=== PATIENT | female | born 1935 | race African-American/Black ===

== ENCOUNTER 2017-01-30 11:55 | Emergency (ER) | payer MEDICARE, OTHER ==
[~2017-01-30] VITALS: Ht 157.5 cm; Wt 58.0 kg
[~2017-01-30 11:55] MED LIST: ASPI-986; BENA40TA3; DOXA4TAB3; LOSA100T14; PENT400T2; PIOG15TA6; ROSU10TA
[2017-01-30 13:43] LABS: EOSINOPHILS % 1.5 % (0.0-5.0); HEMATOCRIT. 34.7 % (36.0-48.0); HEMOGLOBIN. 11.3 g/dL (12.0-16.0); LYMPHOCYTES % 17.9 % (20.0-50.0); MEAN CORPUSCULAR VOLUME 86.1 fL (81.0-99.0); MEAN PLATELET VOLUME 9.2 fl (7.4-10.4); MONOCYTES % 6.6 % (2.0-8.0); PLATELET 254 x1000/uL (130-400); RED BLOOD CELL COUNT 4.03 mill/uL (4.2-5.4); RED CELL DISTRIBUTION WIDTH 14.3 % (11.6-14.6)
[2017-01-30] MEDS ORDERED: SODIUM CHLORIDE 0.9% 1,000 ML IV ONE (13:43)
[2017-01-30 13:51] LABS: PROTHROMBIN TIME 10.1 sec
[2017-01-30 14:00] LABS: CLARITY URINE CLOUDY (CLEAR); COLOR URINE YELLOW (YELLOW); GLUCOSE URINE NEGATIVE (NEGATIVE); KETONES URINE NEGATIVE (NEGATIVE); LEUKOCYTE ESTERASE URINE 3+ (NEGATIVE); NITRITE URINE NEGATIVE (NEGATIVE); OCCULT BLOOD URINE NEGATIVE (NEGATIVE); PROTEIN URINE 1+ (NEGATIVE); SPECIFIC GRAVITY URINE 1.016 (1.005-1.030); UROBILINOGEN URINE 0.2 E.U./dL (0.2-1.0)
[2017-01-30 14:01] LABS: CARBON DIOXIDE 29 mEq/L (21-32); CHLORIDE 103 mEq/L (98-107); TROPONIN I < 0.02 ng/mL (0.00-0.04)
[2017-01-30] MEDS ORDERED: CEFTRIAXONE 1 G PREMIX 50 ML IV ONE (14:15)
[2017-01-30] MEDS ORDERED: DEXAMETHASONE 10MG/ML 1ML VIAL IV ONE (17:30)
[2017-01-30 18:46] VITALS: BP 176/70
[2017-01-30] MEDS ORDERED: CLONIDINE 0.1MG TABLET PO ONE (19:00)
== END 2017-01-30 21:19 | disposition short-term general hospital (02) ==
LOC: ER 13:50 → CANBEDREQ 21:42
DX: D43.0 Neoplasm of uncertain behavior of brain, supratentorial (principal); N39.0 Urinary tract infection, site not specified; D64.9 Anemia, unspecified; I10 Essential (primary) hypertension; N28.9 Disorder of kidney and ureter, unspecified; E11.9 Type 2 diabetes mellitus without complications; Z79.82 Long term (current) use of aspirin; Z87.891 Personal history of nicotine dependence; Z91.81 History of falling; Z86.73 Personal history of transient ischemic attack (TIA), and cerebral infarction without residual deficits
CPT/HCPCS: 36415; 70450; 71010; 80053; 81001; 82962; 84484; 85025; 85610; 87086; 93005; 96361; 96365; 96375; 99285; J0696; J1100; J7030

== ENCOUNTER 2017-10-17 09:00 | Day surgery (SDC) | payer OTHER, MEDICARE ==
[2017-10-17] VITALS (15 sets, daily range): BP systolic 139–168; BP diastolic 73–95
[~2017-10-17] VITALS: Ht 154.9 cm; Wt 50.3 kg
[2017-10-17] MEDS ORDERED: FENTANYL CITRATE/PF 50MCG/ML 2ML VIAL ONE (09:24)
[2017-10-17] MEDS ORDERED: LIDOCAINE HCL/PF 1% 10 MG/ML 30ML VIAL ONE (09:58)
[2017-10-17] MEDS ORDERED: SODIUM BICARBONATE 4% (2.4MEQ) 5ML VIAL IV ONE (09:59)
[2017-10-17] MEDS ORDERED: LOSA100T14 PO (10:28)
[2017-10-17] MEDS ORDERED: GLIM1TAB2 PO (10:28)
[2017-10-17] MEDS ORDERED: AMLO-78 PO (10:28)
[2017-10-17] MEDS ORDERED: ATOR20TA65 PO (10:28)
[2017-10-17] MEDS ORDERED: HYDROCODONE/ACETAMINOPHEN 5/325MG TABLET PO PRN (11:00)
[2017-10-17] MEDS ORDERED: FENTANYL CITRATE/PF 50MCG/ML 2ML VIAL IV ONE (11:00)
[2017-10-17 14:24] LABS: HEMATOCRIT 32.2 % (36.0-48.0); HEMOGLOBIN 10.6 g/dL (12.0-16.0)
== END 2017-10-17 15:15 | disposition home or self-care (01) ==
LOC: RAD 09:00
DX: C78.7 Secondary malignant neoplasm of liver and intrahepatic bile duct (principal); C80.1 Malignant (primary) neoplasm, unspecified; R16.0 Hepatomegaly, not elsewhere classified; Z79.899 Other long term (current) drug therapy; D64.89 Other specified anemias; I10 Essential (primary) hypertension; E11.9 Type 2 diabetes mellitus without complications; Z79.82 Long term (current) use of aspirin; Z87.891 Personal history of nicotine dependence; Z86.73 Personal history of transient ischemic attack (TIA), and cerebral infarction without residual deficits; Z79.84 Long term (current) use of oral hypoglycemic drugs
CPT/HCPCS: 36415; 47000; 76942; 85014; 85018; 88307; 88313; 99152; 99153; J3010; J3490; J7050

== ENCOUNTER 2017-12-28 07:57 | Day surgery (SDC) | payer OTHER ==
[2017-12-28] VITALS (18 sets, daily range): BP systolic 120–167; BP diastolic 52–78
[~2017-12-28] VITALS: Ht 157.5 cm; Wt 58.5 kg
[~2017-12-28 07:57] MED LIST changes: +AMLO-78 PO; -ASPI-986; +ATOR20TA65 PO; +GLIM1TAB2 PO; +LOSA100T14 PO; +PENT400T11; -PENT400T2
[2017-12-28] MEDS ORDERED: SODIUM BICARBONATE 4% (2.4MEQ) 5ML VIAL IV ONE (08:31)
[2017-12-28] MEDS ORDERED: LIDOCAINE HCL/PF 1% 10 MG/ML 5ML VIAL ONE ×3 (08:31→10:46)
[2017-12-28] MEDS ORDERED: FENTANYL CITRATE/PF 50MCG/ML 2ML VIAL ONE (09:04)
[2017-12-28] MEDS ORDERED: DEXTROSE 50% WATER 50ML SYRINGE IV ONE (09:46)
[2017-12-28] MEDS ORDERED: MIDAZOLAM HCL 2 MG/2 ML VIAL ONE (09:53)
[2017-12-28] MEDS ORDERED: KEPP250 PO (10:19)
[2017-12-28] MEDS ORDERED: ONDANSETRON HCL 4MG/2ML VIAL ONE (10:36)
[2017-12-28] MEDS ORDERED: ONDANSETRON HCL 4MG/2ML VIAL IV ONE (10:45)
[2017-12-28] MEDS ORDERED: ONDANSETRON HCL 4MG/2ML VIAL IV NR (10:45)
[2017-12-28] MEDS ORDERED: DEXTROSE 50% WATER 50ML SYRINGE IV NR (11:00)
[2017-12-28] MEDS ORDERED: FENTANYL CITRATE/PF 50MCG/ML 2ML VIAL IV ONE (11:00)
[2017-12-28] MEDS ORDERED: HYDROCODONE/ACETAMINOPHEN 5/325MG TABLET PO PRN (11:15)
[2017-12-28 15:00] LABS: HEMATOCRIT 34.9 % (36.0-48.0); HEMOGLOBIN 11.2 g/dL (12.0-16.0)
== END 2017-12-28 15:35 | disposition home or self-care (01) ==
LOC: RAD 07:57
PROVIDERS: ATTEND Radiology Radiation Oncology
DX: C80.1 Malignant (primary) neoplasm, unspecified (principal); C78.7 Secondary malignant neoplasm of liver and intrahepatic bile duct; I10 Essential (primary) hypertension; E11.9 Type 2 diabetes mellitus without complications; Z79.82 Long term (current) use of aspirin; Z79.84 Long term (current) use of oral hypoglycemic drugs; Z79.899 Other long term (current) drug therapy; Z87.891 Personal history of nicotine dependence
CPT/HCPCS: 36415; 49411; 76942; 77002; 82962; 85014; 85018; J2405; J3010; J3490; J7040; J7050; J2250

== ENCOUNTER 2018-03-28 12:51 | Inpatient (IN) | payer OTHER ==
[~2018-03-28] VITALS: Ht 157.5 cm; Wt 58.1 kg
[~2018-03-28 12:51] MED LIST changes: -BENA40TA3; +BENA40TA9; +KEPP250 PO
[2018-03-28] MEDS ORDERED: ACETAMINOPHEN 325MG TABLET PO STA (13:32)
[2018-03-28] MEDS ORDERED: SODIUM CHLORIDE 0.9% 1000ML BAG (SEPSIS BOLUS) IV ONE (13:45)
[2018-03-28] MEDS ORDERED: PIPERACILLIN/TAZ 3.375G PREMIX 50 ML IV ONE (13:45)
[2018-03-28] MEDS ORDERED: VANCOMYCIN 1 G PREMIX 200 ML IV ONE (13:45)
[2018-03-28 14:17] LABS: HEMATOCRIT. 23.5 % (36.0-48.0); MEAN CORPUSCULAR HEMOGLOBIN 28.6 pg (28.0-32.0); MEAN CORPUSCULAR VOLUME 84.3 fL (81.0-99.0); MEAN PLATELET VOLUME 10.5 fl (7.4-10.4); PLATELET 51 x1000/uL (130-400); RED BLOOD CELL COUNT 2.79 mill/uL (4.2-5.4); RED CELL DISTRIBUTION WIDTH 15.7 % (11.6-14.6)
[2018-03-28 14:50] LABS: PLATELET ESTIMATE MARKEDLY DECREASED
[2018-03-28 14:54] LABS: CHLORIDE 104 mEq/L (98-107)
[2018-03-28 14:56] LABS: CLARITY URINE CLEAR (CLEAR); COLOR URINE YELLOW (YELLOW); KETONES URINE NEGATIVE (NEGATIVE); LEUKOCYTE ESTERASE URINE TRACE (NEGATIVE); NITRITE URINE NEGATIVE (NEGATIVE); OCCULT BLOOD URINE NEGATIVE (NEGATIVE); PH URINE 6.5 (4.5-8.0); PROTEIN URINE TRACE (NEGATIVE); UROBILINOGEN URINE 0.2 E.U./dL (0.2-1.0)
[2018-03-28 15:35] LABS: PROTHROMBIN TIME 10.4 sec (9.1-11.1)
[2018-03-28] MEDS ORDERED: PIPERACILLIN/TAZ 3.375G PREMIX 50 ML IV SCH (19:15)
[2018-03-28] MEDS ORDERED: DEXTROSE 50% WATER 50ML SYRINGE IV PRN (19:15)
[2018-03-28 19:18] LABS: BG BASE EXCESS -6.4 mmol/L (-2.0-2.0); BG CARBOXYHEMOGLOBIN 0.4 % (0.5-1.5); BG DEOXYHEMOGLOBIN 4.3 % (0.0-5.0); BG FRACTION INSPIRED OXYGEN 21; BG HCO3 ACT 17.7 mmol/L (22.0-26.0); BG METHEMOGLOBIN 0.2 % (0.0-1.5); BG OXYGEN SATURATION 95.7 % (92.0-98.5); BG OXYHEMOGLOBIN 95.1 % (94.0-97.0); BG PCO2 29.5 mmHg (35.0-45.0); BG PH 7.397 (7.350-7.450); BG PO2 86.7 mmHg (75.0-100.0); BG SAMPLE SITE RIGHT RADIAL; BG TOTAL HEMOGLOBIN 6.8 g/dL (12.0-18.0); BG VENT MODE ROOM AIR
[2018-03-28] MEDS ORDERED: IPRATROPIUM/ALBUTEROL 0.5-3(2.5)MG/3ML NEB INH PRN (19:45)
[2018-03-28] MEDS ORDERED: ACETAMINOPHEN 650MG SUPP PR PRN (19:45)
[2018-03-28] MEDS ORDERED: MAGNESIUM/ALUMINUM HYDROXIDE/SIMETHICONE 30ML UDC PO PRN (19:45)
[2018-03-28] MEDS ORDERED: ONDANSETRON HCL 4MG/2ML INJ IV PRN (19:45)
[2018-03-28] MEDS ORDERED: HYDROCODONE/ACETAMINOPHEN 5/325MG TABLET PO PRN (19:45)
[2018-03-28] MEDS ORDERED: DIPHENHYDRAMINE 50MG/ML VIAL IV PRN (19:45)
[2018-03-28] MEDS ORDERED: DEXT 5%/0.45% NACL 1000ML 1,000 ML IV SCH (19:45)
[2018-03-28] MEDS ORDERED: ACETAMINOPHEN 325MG TABLET PO PRN (19:45)
[2018-03-28] MEDS ORDERED: NA PHOS,M-B/NA PHOS,DI-BA ENEMA 118ML PR PRN (19:45)
[2018-03-28] MEDS: INSULIN LISPRO 100 UNITS/ML SUBCUT SCH (21:00)
[2018-03-28] MEDS: BLOOD SUGAR DIAGNOSTIC STRIP TEST SCH (21:00)
[2018-03-28 22:00] VITALS: BP_SYST 126; BP_SYST 129; BP_DIAS 66; BP_DIAS 69
[2018-03-28] MEDS ORDERED: IPRATROPIUM/ALBUTEROL 0.5-3(2.5)MG/3ML NEB HHN NR (22:00)
[2018-03-28] MEDS: DEXT 5%/0.45% NACL 1000ML 1,000 ML IV SCH (22:48)
[2018-03-28] MEDS: PIPERACILLIN/TAZ 2.25G PREMIX 50 ML IV SCH (22:54)
[2018-03-29] VITALS (12 sets, daily range): BP systolic 127–164; BP diastolic 60–82
[2018-03-29 00:54] LABS: CREATINE KINASE MB FRACTION 1.6 ng/mL (0.5-3.6)
[2018-03-29] MEDS: VANCOMYCIN 750 MG PREMIX 150 ML IV SCH ×2 (02:40→18:00)
[2018-03-29] MEDS: IPRATROPIUM/ALBUTEROL 0.5-3(2.5)MG/3ML NEB HHN SCH ×5 (04:05→20:58)
[2018-03-29] MEDS: PIPERACILLIN/TAZ 2.25G PREMIX 50 ML IV SCH ×3 (04:55→19:27)
[2018-03-29 06:31] LABS: CHLORIDE 109 mEq/L (98-107)
[2018-03-29 06:38] LABS: LDL CHOLESTEROL 45 mg/dL (5-100)
[2018-03-29 06:39] LABS: CREATINE KINASE 83 IU/L (26-192); CREATINE KINASE MB FRACTION 1.5 ng/mL (0.5-3.6); T4 FREE 1.15 ng/dL (0.76-1.46)
[2018-03-29 06:40] LABS: HDL CHOLESTEROL 36 mg/dL (40-59)
[2018-03-29] MEDS: BLOOD SUGAR DIAGNOSTIC STRIP TEST SCH ×4 (06:46→20:10)
[2018-03-29] MEDS: INSULIN LISPRO 100 UNITS/ML SUBCUT SCH ×4 (06:47→20:11)
[2018-03-29 07:07] LABS: MEAN CORPUSCULAR HEMOGLOBIN 28.3 pg (28.0-32.0); MEAN CORPUSCULAR VOLUME 83.5 fL (81.0-99.0); MEAN PLATELET VOLUME 10.1 fl (7.4-10.4); RED BLOOD CELL COUNT 2.22 mill/uL (4.2-5.4); RED CELL DISTRIBUTION WIDTH 15.6 % (11.6-14.6)
[2018-03-29 07:12] LABS: HEMATOCRIT. 18.5 % (36.0-48.0); HEMOGLOBIN. 6.3 g/dL (12.0-16.0)
[2018-03-29 07:13] LABS: PLATELET 9 x1000/uL (130-400)
[2018-03-29 07:56] LABS: BG BASE EXCESS -4.2 mmol/L (-2.0-2.0); BG CARBOXYHEMOGLOBIN 0.8 % (0.5-1.5); BG DEOXYHEMOGLOBIN 2.9 % (0.0-5.0); BG METHEMOGLOBIN 0.1 % (0.0-1.5); BG OXYGEN SATURATION 97.1 % (92.0-98.5); BG OXYHEMOGLOBIN 96.2 % (94.0-97.0); BG PCO2 27.4 mmHg (35.0-45.0); BG PO2 91.1 mmHg (75.0-100.0); BG SAMPLE SITE RIGHT BRACHIAL; BG TOTAL HEMOGLOBIN 7.1 g/dL (12.0-18.0); BG VENT MODE NASAL CANNULA
[2018-03-29 08:45] LABS: PLATELET ESTIMATE MARKEDLY DECREASED
[2018-03-29 17:41] LABS: HEMOGLOBIN 9.3 g/dL (12.0-16.0)
[2018-03-29] MEDS: DEXT 5%/0.45% NACL 1000ML 1,000 ML IV SCH (19:00)
[2018-03-29 19:08] LABS: HEMATOCRIT 27.2 % (36.0-48.0); HEMOGLOBIN 9.3 g/dL (12.0-16.0); MEAN CORPUSCULAR VOLUME 84.4 fL (81.0-99.0); RED BLOOD CELL COUNT 3.22 mill/uL (4.2-5.4); RED CELL DISTRIBUTION WIDTH 14.8 % (11.6-14.6)
[2018-03-29 19:14] LABS: PLATELET 10 x1000/uL (130-400)
[2018-03-29] MEDS ORDERED: IOHEXOL-300 100 ML BOTTLE ONE (19:30)
[2018-03-29] MEDS ORDERED: FILGRASTIM 300 MCG/ML VIAL SUBCUT SCH (21:00)
[2018-03-29] MEDS: FILGRASTIM-TBO 300 MCG/0.5 ML SYRINGE SQ SCH (21:31)
[2018-03-30] VITALS: BP 158/83
[2018-03-30] MEDS ORDERED: IPRATROPIUM BROMIDE (0.02%) 0.5MG/2.5ML NEB HHN PRN
[2018-03-30] MEDS: IPRATROPIUM/ALBUTEROL 0.5-3(2.5)MG/3ML NEB HHN SCH ×5 (00:38→20:00)
[2018-03-30] MEDS: PIPERACILLIN/TAZ 2.25G PREMIX 50 ML IV SCH ×5 (00:45→22:26)
[2018-03-30 04:00] VITALS: BP 162/67
[2018-03-30] MEDS: IPRATROPIUM BROMIDE (0.02%) 0.5MG/2.5ML NEB HHN PRN ×4 (04:20→16:12)
[2018-03-30] MEDS: BLOOD SUGAR DIAGNOSTIC STRIP TEST SCH ×4 (06:21→20:44)
[2018-03-30] MEDS: INSULIN LISPRO 100 UNITS/ML SUBCUT SCH ×4 (07:15→20:44)
[2018-03-30 08:00] VITALS: BP 156/86
[2018-03-30 08:51] LABS: CHLORIDE 106 mEq/L (98-107)
[2018-03-30 09:01] LABS: HEMATOCRIT 25.2 % (36.0-48.0); MEAN CORPUSCULAR HEMOGLOBIN 29.5 pg (28.0-32.0); MEAN CORPUSCULAR VOLUME 83.1 fL (81.0-99.0); PLATELET 80 x1000/uL (130-400); RED BLOOD CELL COUNT 3.03 mill/uL (4.2-5.4); RED CELL DISTRIBUTION WIDTH 14.7 % (11.6-14.6)
[2018-03-30] MEDS ORDERED: METOPROLOL TARTRATE 25MG TABLET PO NR (11:30)
[2018-03-30] MEDS ORDERED: POTASSIUM CHLORIDE 20MEQ TABLET SR PO NR (11:30)
[2018-03-30 12:00] VITALS: BP 167/88
[2018-03-30] MEDS: VANCOMYCIN 750 MG PREMIX 150 ML IV SCH (12:40)
[2018-03-30 16:00] VITALS: BP 142/88
[2018-03-30 20:00] VITALS: BP_SYST 166; BP_SYST 175; BP_DIAS 77; BP_DIAS 95
[2018-03-30] MEDS: CLONIDINE 0.1MG TABLET PO PRN (20:42)
[2018-03-30] MEDS: METOPROLOL TARTRATE 25MG TABLET PO SCH (20:42)
[2018-03-30] MEDS: FILGRASTIM-TBO 300 MCG/0.5 ML SYRINGE SQ SCH (20:44)
[2018-03-31] VITALS: BP 126/82
[2018-03-31] MEDS: IPRATROPIUM/ALBUTEROL 0.5-3(2.5)MG/3ML NEB HHN SCH ×6 (00:32→20:47)
[2018-03-31 04:00] VITALS: BP 155/84
[2018-03-31] MEDS: PIPERACILLIN/TAZ 2.25G PREMIX 50 ML IV SCH ×4 (04:03→22:51)
[2018-03-31] MEDS: VANCOMYCIN 750 MG PREMIX 150 ML IV SCH (05:22)
[2018-03-31] MEDS: BLOOD SUGAR DIAGNOSTIC STRIP TEST SCH ×4 (05:55→20:30)
[2018-03-31] MEDS: INSULIN LISPRO 100 UNITS/ML SUBCUT SCH ×4 (05:55→20:30)
[2018-03-31 08:00] VITALS: BP 129/61
[2018-03-31 08:13] LABS: HEMATOCRIT. 26.2 % (36.0-48.0); HEMOGLOBIN. 9.1 g/dL (12.0-16.0); MEAN CORPUSCULAR VOLUME 83.4 fL (81.0-99.0); MEAN PLATELET VOLUME 7.9 fl (7.4-10.4); PLATELET 61 x1000/uL (130-400); RED BLOOD CELL COUNT 3.14 mill/uL (4.2-5.4); RED CELL DISTRIBUTION WIDTH 14.5 % (11.6-14.6)
[2018-03-31] MEDS: METOPROLOL TARTRATE 25MG TABLET PO SCH ×2 (08:36→20:23)
[2018-03-31 12:00] VITALS: BP 162/92
[2018-03-31 15:43] LABS: PLATELET ESTIMATE DECREASED
[2018-03-31 16:00] VITALS: BP 108/37
[2018-03-31] MEDS ORDERED: FILGRASTIM 300 MCG/ML VIAL SUBCUT SCH (18:00)
[2018-03-31 20:00] VITALS: BP_SYST 137; BP_SYST 140; BP_DIAS 78; BP_DIAS 79
[2018-03-31] MEDS: FILGRASTIM-TBO 300 MCG/0.5 ML SYRINGE SQ SCH (20:23)
[2018-04-01] VITALS: BP 139/77
[2018-04-01] MEDS: VANCOMYCIN 750 MG PREMIX 150 ML IV SCH (00:15)
[2018-04-01] MEDS: IPRATROPIUM/ALBUTEROL 0.5-3(2.5)MG/3ML NEB HHN SCH ×4 (01:06→19:59)
[2018-04-01 04:00] VITALS: BP 143/77
[2018-04-01] MEDS: PIPERACILLIN/TAZ 2.25G PREMIX 50 ML IV SCH ×4 (04:39→22:54)
[2018-04-01] MEDS: BLOOD SUGAR DIAGNOSTIC STRIP TEST SCH ×4 (06:11→20:50)
[2018-04-01 06:12] LABS: HEMATOCRIT 27.5 % (36.0-48.0); HEMOGLOBIN 9.8 g/dL (12.0-16.0); MEAN CORPUSCULAR HEMOGLOBIN 29.9 pg (28.0-32.0); MEAN CORPUSCULAR VOLUME 84.1 fL (81.0-99.0); PLATELET 70 x1000/uL (130-400); RED BLOOD CELL COUNT 3.27 mill/uL (4.2-5.4); RED CELL DISTRIBUTION WIDTH 14.7 % (11.6-14.6)
[2018-04-01] MEDS: INSULIN LISPRO 100 UNITS/ML SUBCUT SCH ×4 (07:15→20:51)
[2018-04-01 07:16] LABS: CHLORIDE 105 mEq/L (98-107)
[2018-04-01 08:00] VITALS: BP 174/96
[2018-04-01] MEDS: IPRATROPIUM BROMIDE (0.02%) 0.5MG/2.5ML NEB HHN PRN ×2 (08:52→16:33)
[2018-04-01] MEDS: METOPROLOL TARTRATE 25MG TABLET PO SCH ×2 (09:29→20:51)
[2018-04-01 12:00] VITALS: BP 162/93
[2018-04-01 15:12] LABS: HEMOGLOBIN. 9.5 g/dL (12.0-16.0); MEAN CORPUSCULAR HEMOGLOBIN 29.1 pg (28.0-32.0); MEAN CORPUSCULAR VOLUME 85.9 fL (81.0-99.0); PLATELET 59 x1000/uL (130-400); RED BLOOD CELL COUNT 3.26 mill/uL (4.2-5.4); RED CELL DISTRIBUTION WIDTH 15.1 % (11.6-14.6)
[2018-04-01 16:00] VITALS: BP_SYST 168; BP_SYST 172; BP_SYST 188; BP_DIAS 72; BP_DIAS 92; BP_DIAS 95
[2018-04-01 16:08] LABS: PLATELET ESTIMATE DECREASED
[2018-04-01] MEDS: CLONIDINE 0.1MG TABLET PO PRN (17:01)
[2018-04-01 20:00] VITALS: BP 161/82
[2018-04-01] MEDS: FILGRASTIM-TBO 300 MCG/0.5 ML SYRINGE SQ SCH (20:51)
[2018-04-02] VITALS: BP 123/69
[2018-04-02] MEDS ORDERED: VANCOMYCIN 1 G PREMIX 200 ML IV SCH
[2018-04-02] MEDS ORDERED: VANCOMYCIN 750 MG PREMIX 150 ML IV SCH
[2018-04-02] MEDS: IPRATROPIUM BROMIDE (0.02%) 0.5MG/2.5ML NEB HHN PRN (03:37)
[2018-04-02 04:00] VITALS: BP_SYST 167; BP_SYST 171; BP_DIAS 82; BP_DIAS 89
[2018-04-02] MEDS: PIPERACILLIN/TAZ 2.25G PREMIX 50 ML IV SCH ×2 (04:22→10:21)
[2018-04-02] MEDS: CLONIDINE 0.1MG TABLET PO PRN (05:21)
[2018-04-02] MEDS: INSULIN LISPRO 100 UNITS/ML SUBCUT SCH ×2 (05:47→12:15)
[2018-04-02] MEDS: BLOOD SUGAR DIAGNOSTIC STRIP TEST SCH ×2 (05:47→11:45)
[2018-04-02 08:00] VITALS: BP 130/73
[2018-04-02] MEDS: IPRATROPIUM/ALBUTEROL 0.5-3(2.5)MG/3ML NEB HHN SCH ×4 (08:00→15:00)
[2018-04-02] MEDS: METOPROLOL TARTRATE 25MG TABLET PO SCH (09:28)
[2018-04-02 12:00] VITALS: BP 155/78
[2018-04-02] MEDS ORDERED: FILGRASTIM 300 MCG/ML VIAL SUBCUT NR (14:00)
[2018-04-02 14:52] VITALS: BP 155/78
[2018-04-02] MEDS ORDERED: FILGRASTIM-TBO 300 MCG/0.5 ML SYRINGE SQ NR (16:00)
== END 2018-04-02 15:35 | disposition home or self-care (01) | DRG 872 ==
LOC: ER 12:51 → EDBEDREQ 17:09 → EDBEDREQTM 17:09 → EDBEDREQSVC 17:09 → SUPCPDRO 18:47 → ENRESERV 20:20 → EDBEDREQ 21:07 → 5WST 21:50
PROVIDERS: ADMIT Internal Medicine; ATTEND Internal Medicine
PROC: 30233R1 Transfusion of Nonautologous Platelets into Peripheral Vein, Percutaneous Approach (ICD-10-PCS; principal; 2018-03-29)
PROC: 30233N1 Transfusion of Nonautologous Red Blood Cells into Peripheral Vein, Percutaneous Approach (ICD-10-PCS; 2018-03-29)
DX: A41.9 Sepsis, unspecified organism (principal); J44.1 Chronic obstructive pulmonary disease with (acute) exacerbation; D68.59 Other primary thrombophilia; D61.818 Other pancytopenia; C78.00 Secondary malignant neoplasm of unspecified lung; C78.7 Secondary malignant neoplasm of liver and intrahepatic bile duct; C71.9 Malignant neoplasm of brain, unspecified; N39.0 Urinary tract infection, site not specified; E11.9 Type 2 diabetes mellitus without complications; I10 Essential (primary) hypertension; G90.8 Other disorders of autonomic nervous system; Z87.891 Personal history of nicotine dependence; Z86.73 Personal history of transient ischemic attack (TIA), and cerebral infarction without residual deficits; Z79.899 Other long term (current) drug therapy; Z92.21 Personal history of antineoplastic chemotherapy
CPT/HCPCS: 36415; 36600; 70450; 71045; 71260; 78580; 80048; 80053; 80061; 80202; 81003; 82375; 82550; 82553; 82805; 82962; 83036; 83605; 84439; 84443; 85007; 85014; 85018; 85025; 85027; 85049; 85384; 85610; 86850; 86900; 86920; 86945; 87040; 87086; 93005; 93970; 94640; 96365; 96375; 97162; 99291; J1442; J2543; J3370; J3490; J7030; J7040; J7050; J7620; P9016; P9034; Q9967